=== PATIENT | male | born 2000 | race African-American/Black ===

== ENCOUNTER 2021-05-02 01:17 | Emergency (ER) | payer OTHER, MEDICAID ==
[2021-05-02 02:39] VITALS: BP 125/80; PULSE 80; TEMP 98.5
== END 2021-05-02 02:39 | disposition home or self-care (01) ==
LOC: COL.ER 01:17
DX: G25.71 Drug induced akathisia (principal); T43.595A Adverse effect of other antipsychotics and neuroleptics, initial encounter; F17.210 Nicotine dependence, cigarettes, uncomplicated